=== PATIENT | female | born 2000 | race Caucasian/White ===

== ENCOUNTER 2021-05-17 15:09 | Emergency (ER) | payer SELFPAY ==
[~2021-05-17] VITALS: Ht 170.2 cm; Wt 68.0 kg
--- NOTE | 2021-05-17 15:10 | NUR ---
Pt placed in the tent
--- NOTE | 2021-05-17 15:30 | NUR ---
Pt brought by self , A&Ox4 , pt presents to ER with cough / congestion, exposed to covid, VSS
[2021-05-17 15:40] VITALS: BP_SYST 108
--- NOTE | 2021-05-17 18:20 | NUR ---
Dr Little evaluating patient at bedside
[2021-05-17 18:50] VITALS: BP_SYST 108
--- NOTE | 2021-05-17 18:50 | NUR ---
Patient given written and verbal discharge instructions and verbalizes understanding. ER MD discussed with patient the results and treatment provided. Patient in stable condition. ID arm band removed. No Rx given. Patient educated on pain management and to follow up with PMD. Pain Scale 0/10. Opportunity for questions provided and answered. Medication side effect fact sheet provided.
== END 2021-05-17 18:50 | disposition home or self-care (01) ==
LOC: SED 15:09 → EDBD 15:09 → SED 18:50
DX: B34.9 Viral infection, unspecified (principal); Z20.822 Contact with and (suspected) exposure to COVID-19
CPT/HCPCS: 99283; U0003; C9803